=== PATIENT | male | born 1960 ===

== ENCOUNTER → 2019-03-15 | Outpatient (CLI) | payer OTHER | END | disposition home or self-care (01) | LOC: TOM 11:12 | DX: K63.2 Fistula of intestine (principal) ==

== ENCOUNTER 2019-04-18 15:35 | Inpatient (IN) | payer OTHER ==
[~2019-04-18] VITALS: Ht 177.8 cm; Wt 78.0 kg
[2019-04-18] MEDS ORDERED: CARBIDOPA-LEVO1 EA10 PO (15:45)
[2019-04-18] MEDS ORDERED: VASOTEC10 MG (15:45)
[2019-04-18] MEDS ORDERED: MULTI-VITAMIN1 EACH (15:45)
--- NOTE | 2019-04-18 15:46 | NUR ---
PACIENTE LLEGA A ER,EN AMBULANCIA , FAMILIAR INDICA QUE VIENE POR PROBLEMAS DE COMPLICACION DE OPERACION , QUE TIENE INTESTINO PERFORADO Y ESTA BOTANDO ESCRETA POR AREA DE FISTULA, ES PACIENTE DE , SE PRESENTA A . SE UBICA EN BERTHA 12, SE JERO CON BARRANDAS ELEVADAS. SE ORIENTA A NOTIFICAE DE NECESITAR AYUDA.
--- NOTE | 2019-04-18 17:20 | NUR ---
HACKETT EVALUA PTE. SE ORIENTA A PTE SOBRE [place] MEDICO. PTE REFIERE COMPRENDER. SE REALIZAN MUESTRAS DE LABORATORIO BAJO MEDIDAS ASEPTICAS. SE ADMINISTRA IV'S SHELLY ORDEN MEDICA. SE NOTIFICA CT. PROCEDIMIENTOS LLEVADOS A CABO POR .
[2019-05-21] MEDS ORDERED: PEPCID AC20 MG PO (13:50)
[2019-05-21] MEDS ORDERED: VASOTEC10 MG PO (13:50)
[2019-05-21] MEDS ORDERED: Neurin-Sl Tablet Sl SL (13:50)
[2019-05-21] MEDS ORDERED: INTEGRA F CAPS1 EACH PO (13:50)
[2019-05-21] MEDS ORDERED: PRE PROTEIN1 EACH PO (13:50)
[2019-05-21] MEDS ORDERED: SINEMET 25-1001 EACH PO (13:50)
[2019-05-21] MEDS ORDERED: PROTONIX40 MG PO (13:50)
[2019-05-21] MEDS ORDERED: INTESTINEX680 M1 PO (13:50)
[2019-05-21] MEDS ORDERED: CLONAZEPAM0.5 MG PO (13:50)
[2019-05-21] MEDS ORDERED: GABAPENTIN300 MG PO (13:50)
[2019-05-21] MEDS ORDERED: Vitamin B-6 PO (13:50)
[2019-05-21] MEDS ORDERED: HYOSCYAMINE0.125 M1 SL (13:50)
== END 2019-05-21 14:07 | disposition home health service (06) | DRG 329 ==
LOC: ER 15:35 → SURH 21:04 → MEDJ 21:04 → SEC-K 21:04 → MEDJ 04-19 00:12 → SURH 04-19 15:00
PROVIDERS: ADMIT Colon & Rectal Surgery
PROC: BW21Y0Z Computerized Tomography (CT Scan) of Abdomen and Pelvis using Other Contrast, Unenhanced and Enhanced (ICD-10-PCS; 2019-04-18)
PROC: 02HV33Z Insertion of Infusion Device into Superior Vena Cava, Percutaneous Approach (ICD-10-PCS; 2019-04-20)
PROC: 3E0436Z Introduction of Nutritional Substance into Central Vein, Percutaneous Approach (ICD-10-PCS; 2019-04-20)
PROC: 0DJD8ZZ Inspection of Lower Intestinal Tract, Via Natural or Artificial Opening Endoscopic (ICD-10-PCS; 2019-04-27)
PROC: 0DNP0ZZ Release Rectum, Open Approach (ICD-10-PCS; 2019-05-02)
PROC: 0WUF0JZ Supplement Abdominal Wall with Synthetic Substitute, Open Approach (ICD-10-PCS; 2019-05-02)
PROC: 0DT80ZZ Resection of Small Intestine, Open Approach (ICD-10-PCS; principal; 2019-05-02 19:45)
PROC: 0DH67UZ Insertion of Feeding Device into Stomach, Via Natural or Artificial Opening (ICD-10-PCS; 2019-05-04)
PROC: 3E0G76Z Introduction of Nutritional Substance into Upper GI, Via Natural or Artificial Opening (ICD-10-PCS; 2019-05-04)
PROC: 30243N1 Transfusion of Nonautologous Red Blood Cells into Central Vein, Percutaneous Approach (ICD-10-PCS; 2019-05-07)
PROC: 3E0F7GC Introduction of Other Therapeutic Substance into Respiratory Tract, Via Natural or Artificial Opening (ICD-10-PCS; 2019-05-10)
PROC: 0W9F0ZZ Drainage of Abdominal Wall, Open Approach (ICD-10-PCS; 2019-05-11)
PROC: BW21Y0Z Computerized Tomography (CT Scan) of Abdomen and Pelvis using Other Contrast, Unenhanced and Enhanced (ICD-10-PCS; 2019-05-11)
DX: K63.2 Fistula of intestine (principal); J15.0 Pneumonia due to Klebsiella pneumoniae; B37.1 Pulmonary candidiasis; E44.1 Mild protein-calorie malnutrition; K43.0 Incisional hernia with obstruction, without gangrene; D62 Acute posthemorrhagic anemia; K91.31 Postprocedural partial intestinal obstruction; T81.41XA Infection following a procedure, superficial incisional surgical site, initial encounter; K64.1 Second degree hemorrhoids; M62.81 Muscle weakness (generalized); R26.89 Other abnormalities of gait and mobility; F43.22 Adjustment disorder with anxiety; A49.01 Methicillin susceptible Staphylococcus aureus infection, unspecified site; K57.30 Diverticulosis of large intestine without perforation or abscess without bleeding; I11.9 Hypertensive heart disease without heart failure; G20 Parkinson's disease; C61 Malignant neoplasm of prostate; R97.21 Rising PSA following treatment for malignant neoplasm of prostate; K62.2 Anal prolapse; T81.31XS Disruption of external operation (surgical) wound, not elsewhere classified, sequela